=== PATIENT | male | born 2000 | race Two or more races ===

== ENCOUNTER 2020-11-25 17:22 | Inpatient (IN) | payer SELFPAY ==
[~2020-11-25] VITALS: Ht 175.3 cm; Wt 76.7 kg
[2020-11-25] MEDS ORDERED: MORPHINE SULFATE 4 MG/ML CPJ (NOT FOR IM USE) IV ONE (17:30)
[2020-11-25] MEDS ORDERED: TETANUS, DIPHTHERIA, PERTUSSIS VAC/PF 0.5ML (>7YR OLD) IM ONE (17:30)
[2020-11-25 17:41] LABS: BASOPHILS % 0.8 % (0.0-2.0); EOSINOPHILS % 0.8 % (0.0-5.0); HEMATOCRIT. 37.3 % (42.0-52.0); HEMOGLOBIN. 12.8 g/dL (14.0-18.0); LYMPHOCYTES % 39.2 % (20.0-50.0); MEAN PLATELET VOLUME 7.8 fl (7.4-10.4); MONOCYTES % 6.8 % (2.0-8.0); NEUTROPHILS % 52.4 % (40.0-76.0); PLATELET 266 x1000/uL (130-400); RED BLOOD CELL COUNT 3.88 mill/uL (4.7-6.1); RED CELL DISTRIBUTION WIDTH 13.9 % (11.6-14.6)
[2020-11-25 17:50] LABS: CHLORIDE 108 mEq/L (98-107)
[2020-11-25] MEDS ORDERED: SODIUM CHLORIDE 0.9% 1,000 ML IV ONE (18:00)
[2020-11-25] MEDS ORDERED: CEFAZOLIN 1000MG PREMIX 50 ML IV NR (19:00)
[2020-11-25] MEDS ORDERED: IOHEXOL-350 100 ML BOTTLE ONE (20:01)
[2020-11-25 21:58] LABS: CLARITY URINE CLEAR (CLEAR); COLOR URINE YELLOW (YELLOW); KETONES URINE NEGATIVE (NEGATIVE); LEUKOCYTE ESTERASE URINE NEGATIVE (NEGATIVE); NITRITE URINE NEGATIVE (NEGATIVE); OCCULT BLOOD URINE NEGATIVE (NEGATIVE); PROTEIN URINE NEGATIVE (NEGATIVE); SPECIFIC GRAVITY URINE 1.055 (1.005-1.030); UROBILINOGEN URINE 0.2 E.U./dL (0.2-1.0)
[2020-11-25 22:10] LABS: *AMPHETAMINES SCREEN URINE NEGATIVE (NEGATIVE); *BARBITURATES SCREEN URINE NEGATIVE (NEGATIVE); *BENZODIAZEPINES SCREEN URINE NEGATIVE (NEGATIVE); *COCAINE SCREEN URINE NEGATIVE (NEGATIVE); CANNABINOID URINE SCREEN PRESUMTIVE POSITIVE (NEGATIVE); METHADONE URINE SCREEN NEGATIVE (NEGATIVE); OPIATES URINE SCREEN PRESUMTIVE POSITIVE (NEGATIVE)
[2020-11-25 22:11] LABS: PHENCYCLIDINE URINE SCREEN NEGATIVE (NEGATIVE)
[2020-11-26] MEDS ORDERED: DEXT 5%/0.9% NACL 1,000 ML IV ONE (02:45)
[2020-11-26] MEDS ORDERED: MORPHINE SULFATE 2 MG/ML CPJ (NOT FOR IM USE) IV PRN (02:45)
[2020-11-26] MEDS ORDERED: POTASSIUM CHLORIDE 20MEQ TABLET SR PO SCH (03:15)
[2020-11-26] MEDS: DEXT 5%/0.9% NACL 1,000 ML IV SCH ×2 (03:38→17:59)
[2020-11-26 03:50] VITALS: BP 151/69
[2020-11-26 06:47] LABS: BASOPHILS % 0.3 % (0.0-2.0); EOSINOPHILS % 0.1 % (0.0-5.0); HEMATOCRIT. 34.4 % (42.0-52.0); HEMOGLOBIN. 11.6 g/dL (14.0-18.0); LYMPHOCYTES % 12.4 % (20.0-50.0); MEAN CORPUSCULAR HEMOGLOBIN 32.6 pg (28.0-32.0); MEAN CORPUSCULAR VOLUME 96.7 fL (80.0-94.0); MONOCYTES % 8.7 % (2.0-8.0); NEUTROPHILS % 78.5 % (40.0-76.0); PLATELET 229 x1000/uL (130-400); RED BLOOD CELL COUNT 3.56 mill/uL (4.7-6.1)
[2020-11-26 06:55] LABS: CHLORIDE 108 mEq/L (98-107)
[2020-11-26 08:00] VITALS: BP 138/93
[2020-11-26] MEDS ORDERED: ENOXAPARIN 40MG/0.4ML SYR SUBCUT SCH (09:00)
[2020-11-26] MEDS ORDERED: BUPIVACAINE HCL 0.5% (5MG/ML) 50ML ONE (11:37)
[2020-11-26] MEDS ORDERED: POLYMYXIN B SULFATE 500000 UNITS/VIAL ONE (11:37)
[2020-11-26] MEDS ORDERED: VANCOMYCIN HCL 1 GM/VIAL ONE (11:37)
[2020-11-26] MEDS ORDERED: HYDROCODONE/ACETAMINOPHEN 5/325MG TABLET PO PRN (12:00)
[2020-11-26] MEDS ORDERED: ONDANSETRON HCL 4MG/2ML INJ IV PRN ×2 (12:00→14:15)
[2020-11-26] MEDS ORDERED: HYDROMORPHONE HCL/PF 2MG/ML (OR) ONE (12:06)
[2020-11-26] MEDS ORDERED: GLYCOPYRROLATE 0.2 MG/ML 2ML VIAL ONE (12:12)
[2020-11-26] MEDS ORDERED: LIDOCAINE HCL/EPINEPHRINE 1%-EPI 1:100,000 20 ML VIAL ONE (12:21)
[2020-11-26] MEDS ORDERED: LABETALOL 5MG/ML SYR 20 MG/4 ML SYRINGE IV PRN (14:15)
[2020-11-26] MEDS ORDERED: MEPERIDINE HCL/PF 25MG/ML CPJ IV PRN (14:15)
[2020-11-26] MEDS ORDERED: HYDROMORPHONE HCL/PF 2MG/ML CPJ IV PRN (14:15)
[2020-11-26] MEDS ORDERED: HYDROMORPHONE PCA 10MG/50ML IV PRN (14:45)
[2020-11-26] MEDS ORDERED: ONDANSETRON INJ IV PRN (14:45)
[2020-11-26] MEDS ORDERED: NALOXONE INJ IV PRN (14:45)
[2020-11-26] MEDS ORDERED: DIPHENHYDRAMINE INJ IV PRN (14:45)
[2020-11-26 16:30] VITALS: BP 145/79
[2020-11-26] MEDS: CEFAZOLIN 1000MG PREMIX 50 ML IV SCH (18:11)
[2020-11-26 20:00] VITALS: BP 133/85
[2020-11-27] VITALS: BP 146/96
[2020-11-27] MEDS: CEFAZOLIN 1000MG PREMIX 50 ML IV SCH ×2 (01:52→10:00)
[2020-11-27] MEDS: HYDROCODONE/ACETAMINOPHEN 5/325MG TABLET PO PRN ×3 (02:41→21:40)
[2020-11-27] MEDS: DEXT 5%/0.9% NACL 1,000 ML IV SCH ×2 (03:51→15:53)
[2020-11-27 04:00] VITALS: BP 132/73
[2020-11-27 05:47] LABS: BASOPHILS % 0.1 % (0.0-2.0); HEMOGLOBIN. 9.2 g/dL (14.0-18.0); LYMPHOCYTES % 10.6 % (20.0-50.0); MEAN CORPUSCULAR HEMOGLOBIN 31.8 pg (28.0-32.0); MEAN CORPUSCULAR VOLUME 96.7 fL (80.0-94.0); MONOCYTES % 11.1 % (2.0-8.0); NEUTROPHILS % 78.2 % (40.0-76.0); PLATELET 185 x1000/uL (130-400); RED BLOOD CELL COUNT 2.89 mill/uL (4.7-6.1); RED CELL DISTRIBUTION WIDTH 13.5 % (11.6-14.6)
[2020-11-27 08:00] VITALS: BP 129/90
[2020-11-27] MEDS: ENOXAPARIN 40MG/0.4ML SYR SUBCUT SCH (09:53)
[2020-11-27 12:00] VITALS: BP 142/61
[2020-11-27 16:00] VITALS: BP 127/80
[2020-11-27 20:00] VITALS: BP_SYST 146; BP_SYST 152; BP_DIAS 66; BP_DIAS 68
[2020-11-28] VITALS: BP 132/90
[2020-11-28 04:00] VITALS: BP 146/73
[2020-11-28] MEDS: DEXT 5%/0.9% NACL 1,000 ML IV SCH ×2 (05:12→16:58)
[2020-11-28 06:35] LABS: BASOPHILS % 0.3 % (0.0-2.0); EOSINOPHILS % 0.4 % (0.0-5.0); HEMOGLOBIN. 7.8 g/dL (14.0-18.0); LYMPHOCYTES % 18.2 % (20.0-50.0); MEAN CORPUSCULAR HEMOGLOBIN 32.8 pg (28.0-32.0); MEAN CORPUSCULAR VOLUME 96.8 fL (80.0-94.0); MEAN PLATELET VOLUME 8.4 fl (7.4-10.4); MONOCYTES % 10.3 % (2.0-8.0); NEUTROPHILS % 70.8 % (40.0-76.0); PLATELET 180 x1000/uL (130-400); RED BLOOD CELL COUNT 2.37 mill/uL (4.7-6.1); RED CELL DISTRIBUTION WIDTH 13.3 % (11.6-14.6)
[2020-11-28 08:00] VITALS: BP 140/97
[2020-11-28] MEDS ORDERED: SODIUM CHLORIDE 0.9% 500 ML IV SCH (08:30)
[2020-11-28] MEDS ORDERED: SODIUM CHLORIDE 0.9% 500 ML IV ONE (08:34)
[2020-11-28] MEDS: ENOXAPARIN 40MG/0.4ML SYR SUBCUT SCH (08:36)
[2020-11-28] MEDS: HYDROCODONE/ACETAMINOPHEN 5/325MG TABLET PO PRN (09:03)
[2020-11-28 11:42] VITALS: BP 140/66
[2020-11-28 16:04] VITALS: BP 144/80
[2020-11-28 18:05] LABS: HEMATOCRIT 21.8 % (42.0-52.0); HEMOGLOBIN 7.6 g/dL (14.0-18.0)
[2020-11-28 18:27] LABS: TOTAL IRON BINDING CAPACITY 295 ug/dL (250-450)
[2020-11-28 20:00] VITALS: BP 140/85
[2020-11-28] MEDS ORDERED: NON FORMULARY PATIENT HOME MED XX SCH (20:45)
[2020-11-28] MEDS: FERROUS SULFATE 325MG TABLET PO SCH (21:24)
[2020-11-29] VITALS (7 sets, daily range): BP systolic 127–154; BP diastolic 70–92
[2020-11-29] MEDS: DEXT 5%/0.9% NACL 1,000 ML IV SCH ×2 (06:04→17:46)
[2020-11-29] MEDS: FERROUS SULFATE 325MG TABLET PO SCH ×3 (06:23→17:00)
[2020-11-29 06:38] LABS: BASOPHILS % 0.3 % (0.0-2.0); EOSINOPHILS % 0.8 % (0.0-5.0); HEMATOCRIT. 21.3 % (42.0-52.0); HEMOGLOBIN. 7.4 g/dL (14.0-18.0); LYMPHOCYTES % 12.1 % (20.0-50.0); MEAN CORPUSCULAR HEMOGLOBIN 33.3 pg (28.0-32.0); MEAN CORPUSCULAR VOLUME 96.3 fL (80.0-94.0); MEAN PLATELET VOLUME 8.3 fl (7.4-10.4); MONOCYTES % 10.6 % (2.0-8.0); NEUTROPHILS % 76.2 % (40.0-76.0); PLATELET 186 x1000/uL (130-400); RED BLOOD CELL COUNT 2.22 mill/uL (4.7-6.1); RED CELL DISTRIBUTION WIDTH 13.3 % (11.6-14.6)
[2020-11-29 23:14] LABS: HEMATOCRIT 21.1 % (42.0-52.0); HEMOGLOBIN 7.4 g/dL (14.0-18.0)
[2020-11-30] VITALS (8 sets, daily range): BP systolic 125–150; BP diastolic 66–96
[2020-11-30] MEDS: DEXT 5%/0.9% NACL 1,000 ML IV SCH (06:20)
[2020-11-30] MEDS: FERROUS SULFATE 325MG TABLET PO SCH ×3 (06:42→17:37)
[2020-11-30 08:07] LABS: HEMATOCRIT 24.5 % (42.0-52.0); HEMOGLOBIN 8.6 g/dL (14.0-18.0)
[2020-11-30] MEDS: METOPROLOL TARTRATE 25MG TABLET PO SCH (21:27)
[2020-11-30] MEDS ORDERED: METO25TA6 PO (21:28)
[2020-11-30] MEDS ORDERED: FERR325T23 PO (21:28)
[2020-12-01] VITALS: BP 112/66
[2020-12-01 04:00] VITALS: BP 102/60
[2020-12-01] MEDS: FERROUS SULFATE 325MG TABLET PO SCH (06:53)
[2020-12-01 08:00] VITALS: BP 117/69
[2020-12-01] MEDS: METOPROLOL TARTRATE 25MG TABLET PO SCH (08:59)
[2020-12-01 09:28] VITALS: BP 117/68
== END 2020-12-01 12:30 | disposition home or self-care (01) | DRG 308 ==
LOC: ER 17:22 → 5WST 22:15 → ENRESERV 11-26 00:41
PROVIDERS: ADMIT Family Medicine; ATTEND Family Medicine
PROC: 0QH806Z Insertion of Intramedullary Internal Fixation Device into Right Femoral Shaft, Open Approach (ICD-10-PCS; principal; 2020-11-26)
PROC: 30233N1 Transfusion of Nonautologous Red Blood Cells into Peripheral Vein, Percutaneous Approach (ICD-10-PCS; 2020-11-29)
DX: S72.491A Other fracture of lower end of right femur, initial encounter for closed fracture (principal); D64.9 Anemia, unspecified; E87.6 Hypokalemia; F17.210 Nicotine dependence, cigarettes, uncomplicated; R00.0 Tachycardia, unspecified; Z20.822 Contact with and (suspected) exposure to COVID-19; W34.09XA Accidental discharge from other specified firearms, initial encounter; Y93.89 Activity, other specified; Z82.49 Family history of ischemic heart disease and other diseases of the circulatory system; Y92.89 Other specified places as the place of occurrence of the external cause; Y99.8 Other external cause status; Z79.899 Other long term (current) drug therapy
CPT/HCPCS: 36415; 73552; 73706; 76000; 80053; 80305; 81003; 83540; 83550; 85014; 85018; 85025; 86850; 86900; 86920; 87426; 90715; 93005; 93970; 97110; 97116; 97162; 97166; 97530; 97535; 99285; C1713; J0690; J1170; J1650; J2270; J3370; J3490; J7030; J7040; J7042; P9016; Q9967; A4315